=== PATIENT | female | born 1960 | race Hispanic/Latino ===

== ENCOUNTER 2019-01-18 09:51 | Outpatient (CLI) | payer MEDICAID ==
[2019-01-18 11:16] LABS: Basophils % (Auto) 0.6 % (0.0-1.8); Eosinophils # (Auto) 0.1 K/mm3 (0.0-0.4); Eosinophils % (Auto) 2.5 % (0.0-4.3); Hematocrit 39.8 % (30.3-42.9); Hemoglobin 12.8 gm/dl (10.1-14.3); Lymphocytes # (Auto) 1.3 K/mm3 (1.2-5.4); Lymphocytes % (Auto) 25.2 % (13.4-35.0); Mean Corpuscular HGB Conc 32 % (30-34); Mean Corpuscular Volume 86 fl (79-97); Monocytes # (Auto) 0.5 K/mm3 (0.0-0.8); Monocytes % (Auto) 10.5 % (0.0-7.3); Platelet Count 135 K/mm3 (140-440); Red Blood Count 4.65 M/mm3 (3.65-5.03); Red Cell Distribution Width 15.1 % (13.2-15.2)
[2019-01-18 11:41] LABS: Alanine Aminotransferase 35 units/L (7-56); Albumin 4.5 g/dL (3.9-5); BUN/Creatinine Ratio 19; Blood Urea Nitrogen 15 mg/dL (7-17); Chol/HDL Ratio 3.44 %; HDL Cholesterol 49 mg/dL (40-59); Hemolysis Index 0; LDL Cholesterol,Direct 104 mg/dL (50-130)
[2019-01-23 11:09] LABS: Vitamin D, 25-OH, D2 6 ng/mL
== END 2019-01-18 09:52 | disposition home or self-care (01) ==
LOC: LAB 09:51
PROVIDERS: ATTEND Internal Medicine
DX: Z13.21 Encounter for screening for nutritional disorder (principal); R73.03 Prediabetes; E03.9 Hypothyroidism, unspecified; E78.5 Hyperlipidemia, unspecified
CPT/HCPCS: 36415; 80053; 80061; 82306; 82607; 83036; 84443; 85025

== ENCOUNTER 2020-01-23 11:45 | Outpatient (CLI) | payer MEDICAID ==
--- NOTE | 2020-01-23 13:01 | XRay Report ---
ABDOMEN 2 VIEW(S) INDICATION / CLINICAL INFORMATION: UNSPECIFIED ABDOMINAL PAIN. COMPARISON: None available. FINDINGS: TUBES / LINES: None. BOWEL GAS PATTERN: There is moderate fecal material throughout the colon. No evidence for dilated bow el or fluid levels. FREE AIR / EXTRALUMINAL GAS: None seen. ADDITIONAL FINDINGS: Cholecystectomy. Severe lumbar scoliosis with degenerative changes. IMPRESSION: Mild constipation. Signer Name: Armand Ortiz Jr, MD Signed: 01/23/2020 12:57 PM Workstation Name: [id number]
== END 2020-01-23 11:46 | disposition home or self-care (01) ==
LOC: XRAY 11:45
PROVIDERS: ATTEND Internal Medicine
DX: K59.09 Other constipation (principal); M41.86 Other forms of scoliosis, lumbar region; Z90.49 Acquired absence of other specified parts of digestive tract
CPT/HCPCS: 74019

== ENCOUNTER 2021-08-16 09:16 | Outpatient (CLI) | payer MEDICAID ==
--- NOTE | 2021-08-16 12:17 | Ultrasound Report ---
ULTRASOUND RENAL INDICATION / CLINICAL INFORMATION: N20.0 CALCULUS OF KIDNEY. COMPARISON: None available. FINDINGS: RIGHT KIDNEY: Length = 10.9 cm. - Echogenicity: Normal. - Parenchymal Thickness: Mild to moderate thinning. - Hydronephrosis: Mild. - Cyst / Mass: None. - Stones: Multiple small stones. LEFT KIDNEY: Length = 10.7 cm. - Echogenicity: Normal. - Parenchymal Thickness: Mild thinning. - Hydronephrosis: Mild. - Cyst / Mass: None. - Stones: None seen. URINARY BLADDER: No significant abnormality. FREE FLUID: None. ADDITIONAL FINDINGS: None. IMPRESSION: 1. Right nephrolithiasis. 2. There is mild hydronephrosis bilaterally. An obstructing source is not identified sonographically. 3. Bilateral parenchymal thinning is ultimately nonspecific but can be seen with medical renal diseas e. Scribed by: America Sotelo RDMS, ARYA, PILY Scribed: 08/16/2021 10:30 AM I have reviewed the images, agree with this report, and edited this report as needed. Signer Name: Gallo Long MD Signed: 08/16/2021 12:03 PM Workstation Name: [id number]
--- NOTE | 2021-08-16 14:39 | XRay Report ---
ABDOMEN 1 VIEW INDICATION / CLINICAL INFORMATION: N20.0 CALCULUS OF KIDNEY. COMPARISON: Ultrasound from 08/16/2021. Radiograph from 01/23/2020. FINDINGS: TUBES / LINES: None. BOWEL GAS PATTERN: Moderate colonic stool burden. Bowel gas pattern is nonobstructive. FREE AIR / EXTRALUMINAL GAS: None. ADDITIONAL FINDINGS: 9 mm and 2 mm calcifications project over the inferior right renal shadow. No jones spicious calcifications overlying the left renal shadow or along the course of either ureter. IMPRESSION: Right nephrolithiasis. Signer Name: Ender Bennett MD Signed: 08/16/2021 2:35 PM Workstation Name: [id number]
== END 2021-08-16 09:17 | disposition home or self-care (01) ==
LOC: US 09:16
PROVIDERS: ATTEND Internal Medicine
DX: N20.0 Calculus of kidney (principal); N13.30 Unspecified hydronephrosis
CPT/HCPCS: 74018; 76770